=== PATIENT | male | born 1985 | race Hispanic/Latino ===

== ENCOUNTER 2017-11-20 04:52 | Emergency (ER) | payer SELFPAY ==
[2017-11-20] MEDS ORDERED: predniSONE 20 MG TAB ONE (05:14)
== END 2017-11-20 06:13 | disposition home or self-care (01) ==
LOC: BURERS 04:52
DX: J45.901 Unspecified asthma with (acute) exacerbation (principal); N49.2 Inflammatory disorders of scrotum; F17.210 Nicotine dependence, cigarettes, uncomplicated
CPT/HCPCS: 54700; J7506; J7620